=== PATIENT | male | born 1980 | race Caucasian/White ===

== ENCOUNTER 2025-06-17 08:10 | Emergency (ER) | payer MEDICARE, MEDICAID, SELFPAY ==
--- NOTE | 2025-06-17 08:16 | PC.NURSE ---
This RN was attempting to start an IV, pt agitated and non cooperative, pt states Get me the fuck off me. Pt pulled away and is currently alert, non compliant. Per EMS, pt was aggressive and refusing IV access for them in route. Pt is currently postictal.
[2025-06-17 08:19] VITALS: PULSE 101; RESP 20; TEMP 36.7; O2SAT 93
--- NOTE | 2025-06-17 08:26 | PC.NURSE ---
EDP dr salguero made aware of pt's noncompliance.
--- OUTSIDE RECORDS SUMMARY | 2025-06-17 09:07 | XMS_ITS ---
Author Organization [facility] [employer] [facility] Care Team Providers Care Gas Derrick Operator Name Role Phone Radha Carlisle Unavailable Unavailable Amando, Yaz Guerrero Unavailable Unavailable Ampadu, Jono Unavailable Unavailable Ampadu, Sarahi Unavailable Unavailable Fahim, Magid Unavailable Unavailable Heft, Krystle L Unavailable Unavailable Rod, Krystle Unavailable Unavailable Salah, Javier Unavailable Unavailable Allergies and adverse reactions No Known Allergies Care Team Name Role Address Phone Organization Dates Jono Ampadu PCP [address] [place], [address], [place] (Office): : : [facility] 08/09/2023 - 08/28/2023 Radha Carlisle [address] [facility] , [place], [address], [place] (Office[place] : [facility] 08/09/2023 - 08/28/2023 Yaz Goel [address] [facility] [address], [place], [address], [place] (Office): : [facility] 08/09/2023 - 08/28/2023 Sarahi Rothmandu [facility] 08/09/2023 - 08/28/2023 Mindi Morrisonefrainbela [address] [facility] [address], [place], [address], [place]Office[place] : [facility] 08/09/2023 - 08/28/2023 Krystle Kumar [address] [facility], [place], [address], [place] (Office): [facility] 08/09/2023 - 08/28/2023 Krystle Velasco [address], [place], [address], [facility] 08/09/2023 - 08/28/2023 Javier Dunn [address] [place] [address] , [place], [address], [place] (Office[place] : [facility] 08/09/2023 - 08/28/2023 Mental Status Section Date Assessment Total Score Description 08/28/2023 BIMS 14 cognitively int act CAM 0 No delirium ind icated PHQ-9 11 moderate depres alice 08/26/2023 BIMS 13 cognitively int act CAM 0 No delirium ind icated PHQ-9 00 Problems Problem # Description Date of onset Resolved Date Code CodeSystem Concern Status 1 ALCOHOL ABUSE, UNCOMPLICATED 08/08/[address] active 2 ALCOHOL USE, UNSPECIFIED WITH WITHDRAWAL, UNSPECIFIED 08/08/[address] active 3 DEVELOPMENTAL DISORDER OF SPEECH AND LANGUAGE, UNSPECIFIED 08/08/[address] active 4 OTHER ACIDOSIS 08/08/[address] act jeremiah 5 OTHER DISORDERS OF PHOSPHORUS METABOLISM 08/08/[address] active 6 OTHER SPECIFIED ANXIETY DISORDERS 08/08/[address] active 7 TRANSIENT ALTERATION OF AWARENESS 08/08/[address] active 8 UNSPECIFIED CONVULSIONS 08/08/[address] active Reason for Referral No Reasons for Referral Entered Social History Social History Observation Description Start Date End Date Code Code System Current Smoking Status Tobacco smoking consumption unknown 003510555 SNOMED CT Sex Assigned At Male 1980 56314-4 [facility] Gender Identity Sexual Orientation Vital Signs Code Code System Vitals Name Values and Units Timing Information 9279-1 [facility] Respiratory Rate Value=20.0 Units=/m in 08/28/2023 8462-4 [facility] Blood Pressure-Diastolic Value=72 Un its=mmHg 08/28/2023 8480-6 [facility] Blood Pressure-Systolic Xwdzh=425 Un its=mmHg 08/28/2023 8310-5 [facility] Body Temperature Value=98.6 Units= F 08/28/2023 8867-4 [facility] Heart rate Value=72.0 Units=/min 01/2023 20862-7 [facility] O2 % BldC Oximetry Value=98.0 Units= % 08/28/2023 90719-9 [facility] Pain Level Value=0.0 08/28/2023
--- OUTSIDE RECORDS SUMMARY | 2025-06-17 09:07 | XMS_ITS | Encounter Summary ---
Author Organization [facility] Address [address] [place] [address] Phone Care Team Providers Care Traffic Clerk Name Role Phone Santos Nelson MD Primary Care Provider [phone] Unknown, Notinfile Primary Care Provider Unavail able Santos Nelson MD Unavailable Santos Nelson MD Primary Care Provider [phone] Valeriy Alva MD Primary Care Provider [phone] Encounter Details Date Type Department Care Team (Late st Contact Info) Description 02/07/2018 Orders Only [facility] Medicine Epilepsy [address] [facility] 6th [place] [address] [place] [address] Phoenix Restrepo MD PhD [address] [place] [address] Localization-related symptomatic epilepsy and epileptic syndromes with complex partial seizures, intractable, without status epilepticus (HCC) (Primary Dx) Social History Tobacco Use Types Packs/Day Years Used Date Smoking Tobacco: Never Sex and Gender Information Value Date Recorded Sex Assigned at Not on file 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 Gender Identity Not on file Sexual Orientation Not on file documented as of this encounter Plan of Treatment Not on file documented as of this encounter Visit Diagnoses Diagnosis Localization-related symptomatic epilepsy and epileptic syndromes with complex partial seizures, intractable, without status epilepticus (HCC)- Primary documented in this encounter Additional Health Concerns Infection Onset Date Last Indicated Resolved Time COVID: Suspected 05/17/2022 05/17/2022 05/17/2022 3:10 PM CDT COVID19 05/17/2022 05/17/2022 06/04/2022 3:05 AM CDT COVID: Recovered Comment:Added based on recent COVID infection. 06/04/2022 06/09/2022 10/02/2022 3:[address] COVID: Suspected 07/30/2023 07/30/2023 07/30/2023 11:37 PM JOB TRAINING SUPERVISOR documented as of this encounter Care Teams Traffic Clerk Relationship Specialty Start Date End Date Santos Nelson MD [address] [facility] [address] [place] [address] PCP - General 01/10/17 02/11/21 Unknown, Notinfile PCP - General 02/12/21 05/23/22 Santos Nelson MD [address] [place] [address] PCP - General Sports Medicine 05/24/22 01/21/25 Valeriy Alva MD [address] [place] [address] PCP - General Internal Medicine 01/22/25 Santos Nelson MD [address] [facility] [address] [place] [address] 02/12/21 documented as of this encounter
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
[2025-06-17 09:16] VITALS: BP 139/77
--- NOTE | 2025-06-17 09:16 | PC.NURSE ---
Pt educated on hospital orders, agreeable to blood draw and IV. Pt allowed one bp reading, updated in VS. Pt continues to be on bed alarm, resting comfortably in bed.
[2025-06-17 09:24] LABS: Hematocrit 43.1 % (42.0-52.0); Hemoglobin 15.0 g/dL (14.0-18.0); Immature Granulocyte Percent A 0.6 % (0-0.5); Lymphocytes Absolute Auto 0.65 K/mm3 (0.9-3.2); Mean Corpuscular HGB Conc 34.8 g/dl (32-36); Mean Corpuscular Hemoglobin 30.5 pg (26-34); Mean Corpuscular Volume 87.6 fl (80-100); Nucleated Red Blood Cells Absolute Auto 0.000 K/mm3 (0.0-0.012); Nucleated Red Blood Cells Perc 0.0 % (0.0-0.2); Platelet Count Result 350 k/mm3 (150-375); Red Blood Count 4.92 M/mm3 (4.6-6.20); White Blood Count 21.2 K/mm3 (4.5-10.0)
[2025-06-17 09:34] LABS: Alanine Aminotransferase 34 U/L (6-50); Albumin Level 4.3 g/dL (3.5-5.1); Alkaline Phosphatase 98 U/L (38-126); Anion Gap 6 mmol/L (4-12); Aspartate Amino Transferase 30 U/L (17-59); Bilirubin,Total 0.6 mg/dL (0.2-1.3); Blood Urea Nitrogen 15 mg/dL (9-20); Calcium 8.6 mg/dL (8.4-10.2); Carbon Dioxide 26 mmol/L (22-30); Chloride 97 mmol/L (98-107); Estimated Glomerular Filt Rate > 60; Glucose 117 mg/dL (65-110); Potassium 3.9 mmol/L (3.4-5.0); Sodium 129 mmol/L (137-145); Total Protein 7.4 g/dL (6.3-8.2)
--- NOTE | 2025-06-17 10:55 | PC.NURSE ---
attempted to connect pt to vitals monitor, pt stated i dont need any of that just leave it alone. Pt covered with blanket, continues to rest.
--- NOTE | 2025-06-17 13:22 | ED.SEIZURE ---
HPI - Seizure General Chief Complaint: Seizure Stated Complaint: seizure Time Seen by Provider: 06/17/25 08:42 Source: EMS Mode of arrival: EMS Limitations: clinical condition History of Present Illness HPI Narrative: 45-year-old with a history of seizure disorder was sent from a correction with a complaint of having seizure this morning patient is noncompliant with medication. Upon chart review he is on Trileptal. I am not sure when was his last do usage patient does not want to answer any questions Related Data Allergies Allergy/AdvReac Type Severity Reaction Status Date / Time No Known Allergies Allergy Verified 06/17/25 08:20 Review of Systems Review of Systems: ROS unobtainable: Yes unobtainable due to medical condition Exam Narrative: GENERAL: Well-appearing, well-nourished, and in no acute distress. HEAD: Normocephalic, atraumatic. EYES: PERRLA and EOMI. ENT: Nares clear, no rhinorrhea or epistaxis. Mucous membranes moist. NECK: Supple. CHEST: Clear to auscultation. No respiratory distress. HEART: Regular rate and rhythm. No murmur heard. Normal peripheral pulses EXTREMITIES: Normal range of motion. No edema. SKIN: Warm, dry, no rash. NEURO: No focal deficits. Alert and oriented x3. PSYCH: Normal mood and affect. Course Course Emergency Course: Patient is wide awake alert at this time. Informed him about his lab work he started cursing. Advised him to continue his home medication discharged back to the correction. Vital Signs Vital signs: Vital Signs Temperature 36.7 C 06/17/25 08:19 Pulse Rate 101 H 06/17/25 08:19 Respiratory Rate 20 06/17/25 08:19 Pulse Oximetry 93 06/17/25 08:19 Temperature 36.7 C 06/17/25 08:19 Pulse Rate 101 H 06/17/25 08:19 Respiratory Rate 20 06/17/25 08:19 Blood Pressure 139/77 06/17/25 09:16 Pulse Oximetry 93 06/17/25 08:19 MDM - Seizure Lab Data 06/17/25 09:14 06/17/25 09:14 Labs: Lab Results 06/17/25 Range/Units 09:14 WBC 21.2 H (4.5-10.0) K/mm3 RBC 4.92 (4.6-6.20) M/mm3 Hgb 15.0 (14.0-18.0) g/dL Hct 43.1 (42.0-52.0) % MCV 87.6 (80-100) fl MCH 30.5 (26-34) pg MCHC 34.8 (32-36) g/dl RDW 12.9 (11.5-14.5) % Plt Count 350 (150-375) k/mm3 MPV 8.6 (7.4-10.4) fl Immature Gran % (Auto) 0.6 H (0-0.5) % Neut % (Auto) 88.3 H (45.5-73.1) % Lymph % (Auto) 3.1 L (18.3-44.2) % [place] % (Auto) 7.9 (2.6-8.5) % Eos % (Auto) 0.0 (0-4.4) % Baso % (Auto) 0.1 L (0.2-1.2) % Lymph # (Auto) 0.65 L (0.9-3.2) K/mm3 [place] # (Auto) 1.7 H (0.1-0.6) K/mm3 Eos # (Auto) 0.0 (0-0.3) K/mm3 Baso # (Auto) 0.0 (0.0-0.1) K/mm3 Abs Immat Gran (auto) 0.12 H (0.00-0.031) K/mm3 Absolute Neuts (auto) 18.7 H (1.3-6.7) K/mm3 Absolute Nucleated RBC 0.000 (0.0-0.012) K/mm3 Nucleated RBC % 0.0 (0.0-0.2) % Sodium 129 L (137-145) mmol/L Potassium 3.9 (3.4-5.0) mmol/L Chloride 97 L (98-107) mmol/L Carbon Dioxide 26 (22-30) mmol/L Anion Gap 6 (4-12) mmol/L BUN 15 (9-20) mg/dL Creatinine 1.05 (0.7-1.3) mg/dL Estim Creat Clear Calc Not Reportable Estimated GFR > 60 (59 - ) Glucose 117 H (65-110) mg/dL Calcium 8.6 (8.4-10.2) mg/dL Total Bilirubin 0.6 (0.2-1.3) mg/dL AST 30 (17-59) U/L ALT 34 (6-50) U/L Alkaline Phosphatase 98 (38-126) U/L Total Protein 7.4 (6.3-8.2) g/dL Albumin 4.3 (3.5-5.1) g/dL Ethyl Alcohol < 10 (<10) mg/dL Discharge Plan Discharge Clinical Impression: Recurrent seizures Patient Disposition: NH Shelter/Asst Living Condition: Stable Instructions: Epilepsy (ED) Additional Instructions: continue home medications, follow with your doctor Patient Language: [place] Follow-up/Referrals: UNKNOWN,DOCTOR [Primary Care Provider]
--- NOTE | 2025-06-17 13:23 | PC.NURSE ---
Patient wandering down the halls looking for the bathroom. RN tried multiple times to direct patient to the bathroom near him. Patient yelling down the tron[place]o that he does not need to be there and does not need seizure pads on his bed. Patient escorted back to room. Patient yelling that he is missing his watch and clothing. Patient arrived with only pants and belt on person. RN removed IV. Patient yelling at RN to stop touching him and leave him alone. Patient yelling at RN that he lives at the [facility]. RN asked where that was located and he stated he did not know. RN asked patient if he would like a sandwich or drink and he stated, I dont need anything. Staff setting up transportation now for home.
--- NOTE | 2025-06-17 13:33 | PC.NURSE ---
pt got out of bed and walking halls with steady gait. pt yelling about not having belongings, pt educated that no belonings were brought with him by EMS. Pt pulled out IV, pt redirected to bed. pt continues to refuse vital signs.
== END 2025-06-17 15:09 ==
PROVIDERS: Emergency Provider Family Medicine
DX: G40.909 Epilepsy, unspecified, not intractable, without status epilepticus (principal)
CPT/HCPCS: 36415; 80053; 82077; 85025; 99283